=== PATIENT | male | born 1980 | race Caucasian/White ===

== ENCOUNTER 2023-09-12 14:33 | Emergency (ER) | payer MEDICAID ==
[~2023-09-12] VITALS: Ht 167.6 cm; Wt 104.3 kg
[2023-09-12 14:40] VITALS: BP 138/80; PULSE 101; RESP 15; TEMP 98.9; O2SAT 100
[2023-09-12] MEDS ORDERED: ONDANSETRON 4 MG/2 ML VIAL IVP ONE (14:55)
[2023-09-12] MEDS ORDERED: MORPHINE SULFATE 4 MG/ML SYR IVP ONE (14:55)
[2023-09-12 15:44] VITALS: BP 138/80; PULSE 101; RESP 15; TEMP 98.9; O2SAT 100
[2023-09-12] MEDS ORDERED: LIDOCAINE MPF 2% 100 MG/5 ML VIAL INJ ONE (16:35)
[2023-09-12] MEDS ORDERED: LIDOCAINE MPF 1% 10 MG/ML VIAL INJ ONE (16:50)
[2023-09-12] MEDS ORDERED: BACITRACIN OINT 500 UNITS/GM PKT TP ONE (17:55)
[2023-09-12] MEDS ORDERED: ceFAZolin 1,000 MG VIAL IM ONE (17:55)
[2023-09-12] MEDS ORDERED: ACET-6951 PO (18:01)
[2023-09-12] MEDS ORDERED: CEPH-588 PO (18:01)
== END 2023-09-12 20:00 | disposition home or self-care (01) ==
LOC: MED 14:33
DX: S61.214A Laceration without foreign body of right ring finger without damage to nail, initial encounter (principal); S61.216A Laceration without foreign body of right little finger without damage to nail, initial encounter; W26.0XXA Contact with knife, initial encounter; Y93.89 Activity, other specified; Y92.89 Other specified places as the place of occurrence of the external cause; Y99.8 Other external cause status
CPT/HCPCS: 12001; 73130; 90471; 90715; 96365; 96375; 99284; J0690; J2001; J2270; J2405